=== PATIENT | female | born 1995 | race Caucasian/White ===

== ENCOUNTER 2016-10-16 01:11 | Emergency (ER) | payer OTHER ==
[~2016-10-16] VITALS: Ht 154.9 cm; Wt 59.0 kg
[2016-10-16] MEDS ORDERED: ACETAMINOPHEN ES 500 MG TABLET PO ONE (01:45)
[2016-10-16] MEDS ORDERED: IBUPROFEN 200 MG TABLET PO ONE (01:45)
[2016-10-16] MEDS ORDERED: IBUPROFEN 200 MG TABLET ONE (02:29)
[2016-10-16] MEDS ORDERED: ACETAMINOPHEN ES 500 MG TABLET ONE (02:29)
[2016-10-16] MEDS ORDERED: HYDROCODONE/APAP 5-325MG TABLET PO ONE (02:45)
--- NOTE | 2016-10-16 02:50 | NUR ---
Pt c/o severe sorethroat getting progressively worse over the last 2 days. Sts painful to swallow. Pt seen by MD. Rapid strep negative. Pt medicated for discomfort. Pt stable for discharge per MD. Pt given ACI. Pt verbalized understanding of dc instructions. Pt ambulated out of er with steady gait.
[2016-10-16] MEDS ORDERED: HYDROCODONE/APAP 5-325MG TABLET ONE (02:56)
[2016-10-16 03:37] VITALS: BP 118/73
== END 2016-10-16 02:50 | disposition home or self-care (01) ==
LOC: ER 01:16
DX: J02.9 Acute pharyngitis, unspecified (principal)
CPT/HCPCS: 36415; 86403; 87070; 99284; A4663

== ENCOUNTER → 2016-11-22 | Emergency (ER) | payer OTHER ==
[~2016-11-22] VITALS: Ht 154.9 cm; Wt 61.2 kg
== END | disposition home or self-care (01) ==
LOC: ER 14:02
DX: H92.03 Otalgia, bilateral (principal)
CPT/HCPCS: A4663

== ENCOUNTER 2017-03-06 13:38 | Emergency (ER) | payer OTHER ==
[~2017-03-06] VITALS: Ht 154.9 cm; Wt 56.7 kg
[2017-03-06 14:01] LABS: *BILIRUBIN,URIN NEGATIVE (NEGATIVE); *BLOOD, URINE NEGATIVE (NEGATIVE); *CLARITY,URINE CLEAR (CLEAR); *COLOR,URINE YELLOW (YELLOW); *KETONES,URINE NEGATIVE (NEGATIVE); *PROTEIN,URINE NEGATIVE (NEGATIVE); *UROBILINOGEN,URINE 0.2 E.U./dl (NORMAL); LEUKOCYTE ESTERASE ,URINE 2+ (NEGATIVE); NITRITE, URINE NEGATIVE (NEGATIVE); UGLUCOSE NEGATIVE (NEGATIVE)
[2017-03-06 14:02] LABS: *URINE HCG, QUAL NEGATIVE (NEGATIVE)
[2017-03-06 14:06] LABS: BACTERIA,URINE FEW /HPF (NONE SEEN); RBC,URINE 0-3 /HPF (0-3); SQUAMOUS EPITHELIAL CELL,UR MODERATE /HPF (NONE SEEN)
--- NOTE | 2017-03-06 14:14 | NUR ---
PT IS IN ROOM #2B. DR GARCIA EVALUATED THE PT.
[2017-03-06] MEDS ORDERED: NITROFURANTOIN/NITROFURAN MAC 100 MG CAPSULE PO ONE (15:30)
[2017-03-06] MEDS ORDERED: PHENAZOPYRIDINE HCL 100 MG TABLET PO ONE (15:30)
--- NOTE | 2017-03-06 15:43 | NUR ---
PT WAS D/C TO HOME. D/C INSTRUCTIONS GIVEN TO THE PT.
[2017-03-06 15:44] VITALS: BP 126/73
[2017-03-06] MEDS ORDERED: NITROFURANTOIN/NITROFURAN MAC 100 MG CAPSULE ONE (15:47)
[2017-03-06] MEDS ORDERED: PHENAZOPYRIDINE HCL 100 MG TABLET ONE (15:48)
== END 2017-03-06 15:44 | disposition home or self-care (01) ==
LOC: ER 13:40
DX: N39.0 Urinary tract infection, site not specified (principal)
CPT/HCPCS: 81001; 84703; 99284; A4663

== ENCOUNTER 2017-07-10 19:25 | Emergency (ER) | payer OTHER ==
[~2017-07-10] VITALS: Ht 154.9 cm; Wt 61.2 kg
--- NOTE | 2017-07-10 20:07 | NUR ---
Pt to room, resting in position of comfort for self. Awaiting further eval.
--- NOTE | 2017-07-10 20:12 | NUR ---
Pt stable for discharge per MD. Pt given ACi. Pt verbalized understanding of dc instructions. Pt ambulated out of ER with steady gait.
[2017-07-10 20:29] VITALS: BP 134/85
== END 2017-07-10 20:30 | disposition home or self-care (01) ==
LOC: ER 19:26
DX: Z00.00 Encounter for general adult medical examination without abnormal findings (principal)
CPT/HCPCS: 99281; A4663

== ENCOUNTER 2017-10-13 21:12 | Emergency (ER) | payer OTHER ==
[~2017-10-13] VITALS: Ht 154.9 cm; Wt 61.2 kg
--- NOTE | 2017-10-13 22:11 | NUR ---
DR DARRIN HERRERA MD AT BEDSIDE FOR MSE.
--- NOTE | 2017-10-13 22:27 | NUR ---
Patient discharged to home in stable conditon. Written and verbal after care instructions given. Patient verbalizes understanding of instructions. PT ambulated from ER w. steady gait. VSS. No acute distress noted. Pt took all personal belongigs.
[2017-10-13 22:29] VITALS: BP 118/72
== END 2017-10-13 22:29 | disposition home or self-care (01) ==
LOC: ER 21:22
DX: M26.609 Unspecified temporomandibular joint disorder, unspecified side (principal)
CPT/HCPCS: A4663

== ENCOUNTER 2018-01-15 11:52 | Emergency (ER) | payer OTHER ==
[~2018-01-15] VITALS: Ht 154.9 cm; Wt 63.5 kg
--- NOTE | 2018-01-15 12:31 | NUR ---
DR DOMINGO AND I WERE IN THE ROOM FOR EXAMINATON.
--- NOTE | 2018-01-15 12:38 | NUR ---
DC AND FOLLOW UP INSTRUCTIONS GIVEN AND EXPLAINED TO PATIENT WHO STATES SHE UNDERSRANDS ALL INSTRUCTIONS INCLUDING F/U WITH GASOLINE PUMP INSTALLER...
== END 2018-01-15 12:43 | disposition home or self-care (01) ==
LOC: ER 11:56
DX: N93.9 Abnormal uterine and vaginal bleeding, unspecified (principal)
CPT/HCPCS: 99281; A4663

== ENCOUNTER 2018-02-17 12:54 | Emergency (ER) | payer OTHER ==
[~2018-02-17] VITALS: Ht 162.6 cm; Wt 59.0 kg
== END 2018-02-17 13:26 | disposition home or self-care (01) ==
LOC: ER 12:54
DX: Z00.00 Encounter for general adult medical examination without abnormal findings (principal); K14.8 Other diseases of tongue
CPT/HCPCS: 99281; A4663

== ENCOUNTER 2018-03-18 03:26 | Emergency (ER) | payer OTHER ==
[~2018-03-18] VITALS: Ht 157.5 cm; Wt 57.6 kg
--- NOTE | 2018-03-18 03:55 | NUR ---
DR. SUTHERLAND AT BEDSIDE FOR MSE.
[2018-03-18] MEDS ORDERED: ACETAMINOPHEN ES 500 MG TABLET ONE (04:09)
[2018-03-18] MEDS ORDERED: ONDANSETRON ODT 4 MG TAB.RAPDIS ONE (04:09)
[2018-03-18] MEDS: ONDANSETRON ODT 4 MG TAB.RAPDIS SL ONE (04:10)
[2018-03-18] MEDS: ACETAMINOPHEN ES 500 MG TABLET PO ONE (04:10)
--- NOTE | 2018-03-18 04:19 | NUR ---
Patient discharged to home in stable conditon with family taking patient home. Written and verbal after care instructions given. Patient verbalizes understanding of instructions. Walked out of ER with no distress noted
[2018-03-18 04:20] VITALS: BP 110/85
== END 2018-03-18 04:20 | disposition home or self-care (01) ==
LOC: ER 03:28
DX: B34.9 Viral infection, unspecified (principal)
CPT/HCPCS: A4663; A9150; Q0162

== ENCOUNTER 2018-08-02 10:45 | Emergency (ER) | payer OTHER ==
[~2018-08-02] VITALS: Ht 154.9 cm; Wt 56.7 kg
[2018-08-02 11:08] LABS: *BILIRUBIN,URIN NEGATIVE (NEGATIVE); *BLOOD, URINE NEGATIVE (NEGATIVE); *CLARITY,URINE CLEAR (CLEAR); *COLOR,URINE YELLOW (YELLOW); *KETONES,URINE NEGATIVE (NEGATIVE); *UROBILINOGEN,URINE 0.2 E.U./dl (NORMAL); LEUKOCYTE ESTERASE ,URINE NEGATIVE (NEGATIVE); NITRITE, URINE NEGATIVE (NEGATIVE); PH,URINE 7.5 (5.0-8.0); UGLUCOSE NEGATIVE (NEGATIVE)
[2018-08-02 11:09] LABS: *URINE HCG, QUAL NEGATIVE (NEGATIVE)
[2018-08-02 11:12] LABS: BACTERIA,URINE FEW /HPF (NONE SEEN); RBC,URINE NONE SEEN /HPF (0-3); SQUAMOUS EPITHELIAL CELL,UR FEW /HPF (NONE SEEN); URINE AMORPHOUS PHOSPHATES FEW /HPF; WBC,URINE NONE SEEN /HPF (0-3)
[2018-08-02 11:59] LABS: BASOPHILS % (AUTO) 0.6 % (0.0-2.0); EOSINOPHILS # (AUTO) 0.2 K/uL (0.0-0.7); EOSINOPHILS % (AUTO) 3.9 % (0.0-7.0); HEMATOCRIT 36.5 % (31.2-41.9); HEMOGLOBIN 12.6 g/dL (10.9-14.3); LYMPHOCYTES # (AUTO) 1.8 K/uL (20.0-40.0); LYMPHOCYTES % (AUTO) 37.7 % (20.5-51.5); MEAN CORPUSCULAR HEMOGLOBIN 30.9 uug (24.7-32.8); MEAN CORPUSCULAR HGB CONC 35 g/dL (32.3-35.6); MEAN CORPUSCULAR VOLUME 89.7 fL (75.5-95.3); MONOCYTES # (AUTO) 0.3 K/uL (2.0-10.0); MONOCYTES % (AUTO) 6.6 % (0.0-11.0); NEUTROPHILS # (AUTO) 2.4 K/uL (1.8-8.9); NEUTROPHILS % (AUTO) 51.2 % (38.5-71.5); PLATELET COUNT (AUTO) 229 K/uL (179-408); RED BLOOD CELL COUNT(AUTO) 4.07 MIL/uL (3.63-4.92); WHITE BLOOD COUNT (AUTO) 4.7 K/uL (3.8-11.8)
[2018-08-02 12:02] LABS: CARBON DIOXIDE 28 mmol/L (21-32); CHLORIDE 103 mmol/L (98-107); CREATININE 0.5 mg/dL (0.6-1.3); GLUCOSE 87 mg/dL (74-106); UREA NITROGEN, BLOOD 10 mg/dL (7-18)
--- NOTE | 2018-08-02 12:35 | NUR ---
Patient is resting comfortably on gurney while intermittently using her personal electronic device , NAD, still for U/S scan@this time
--- NOTE | 2018-08-02 14:16 | NUR ---
Patient discharged to home in stable conditon. Written and verbal after care instructions given to patient. Patient verbalizes understanding of instructions.
== END 2018-08-02 14:23 | disposition home or self-care (01) ==
LOC: ER 10:45
DX: R10.32 Left lower quadrant pain (principal); R10.2 Pelvic and perineal pain
CPT/HCPCS: 36415; 76856; 84703; 85025; A4663

== ENCOUNTER 2019-06-26 18:58 | Emergency (ER) | payer OTHER ==
[~2019-06-26] VITALS: Ht 157.5 cm; Wt 59.0 kg
--- NOTE | 2019-06-26 20:19 | NUR ---
Dr. Hernandez at bedside for MSE.
[2019-06-26] MEDS ORDERED: PANTOPRAZOLE SODIUM 40 MG TABLET.DR PO ONE ×2 (20:25→20:30)
[2019-06-26] MEDS ORDERED: ONDANSETRON ODT 4 MG TAB.RAPDIS ONE (20:26)
[2019-06-26] MEDS ORDERED: ONDANSETRON ODT 4 MG TAB.RAPDIS SL ONE (20:30)
--- NOTE | 2019-06-26 20:37 | NUR ---
Patient discharged to home in stable conditon. Written and verbal after care instructions given. Patient verbalizes understanding of instructions. Pt ambulated out of ER with steady gait, no acute signs of distress, VSS, all belongings taken.
[2019-06-26 20:39] VITALS: BP 98/66
== END 2019-06-26 20:39 | disposition home or self-care (01) ==
LOC: ER 19:02
DX: A08.4 Viral intestinal infection, unspecified (principal)
CPT/HCPCS: A4663; Q0162

== ENCOUNTER 2020-01-17 21:12 | Emergency (ER) | payer OTHER ==
[~2020-01-17] VITALS: Ht 157.5 cm; Wt 58.5 kg
--- NOTE | 2020-01-17 21:30 | NUR ---
urine specimen collected and sent to lab. patient in no acute distress. will monitor.
[2020-01-17] MEDS ORDERED: PHENAZOPYRIDINE HCL 100 MG TABLET ONE (21:38)
[2020-01-17 21:43] LABS: *BILIRUBIN,URIN NEGATIVE (NEGATIVE); *BLOOD, URINE NEGATIVE (NEGATIVE); *CLARITY,URINE CLEAR (CLEAR); *COLOR,URINE YELLOW (YELLOW); *KETONES,URINE 1+ (NEGATIVE); *UROBILINOGEN,URINE 0.2 E.U./dl (NORMAL); LEUKOCYTE ESTERASE ,URINE NEGATIVE (NEGATIVE); NITRITE, URINE NEGATIVE (NEGATIVE); UGLUCOSE NEGATIVE (NEGATIVE)
[2020-01-17 21:45] LABS: *URINE HCG, QUAL NEGATIVE (NEGATIVE)
[2020-01-17] MEDS ORDERED: PHENAZOPYRIDINE HCL 100 MG TABLET PO ONE (21:45)
--- NOTE | 2020-01-17 21:56 | NUR ---
Dr. Hernandez at bedside for MSE.
--- NOTE | 2020-01-17 22:05 | NUR ---
Patient discharged to home in stable condition. Written and verbal after care instructions given. Patient verbalizes understanding of instructions. Stressed follow up or return to ER for worsening s/s.
[2020-01-17 22:06] VITALS: BP 108/60
== END 2020-01-17 22:06 | disposition home or self-care (01) ==
LOC: ER 21:14
DX: R10.2 Pelvic and perineal pain (principal)
CPT/HCPCS: 84703; A4663

== ENCOUNTER 2020-02-01 20:49 | Emergency (ER) | payer OTHER ==
[~2020-02-01] VITALS: Ht 157.5 cm; Wt 56.7 kg
--- NOTE | 2020-02-01 21:18 | NUR ---
at bedside for assessment of patient
[2020-02-01] MEDS ORDERED: ONDANSETRON 4 MG/2 ML VIAL IV ONE (21:30)
[2020-02-01] MEDS ORDERED: IV NORMAL SALINE 1000 ML BAG IV ONE (21:30)
[2020-02-01] MEDS ORDERED: MAG HYDROX/AL HYDROX/SIMETH 30 ML LIQUID UDC PO ONE (21:30)
[2020-02-01] MEDS ORDERED: LIDOCAINE VISCUS 2% 15 ML UDC MM ONE (21:30)
[2020-02-01] MEDS ORDERED: FAMOTIDINE. 20 MG/2 ML VIAL IV ONE ×2 (21:30→21:32)
[2020-02-01] MEDS ORDERED: LIDOCAINE VISCUS 2% 15 ML UDC ONE (21:32)
[2020-02-01] MEDS ORDERED: MAG HYDROX/AL HYDROX/SIMETH 30 ML LIQUID UDC ONE (21:32)
[2020-02-01] MEDS ORDERED: ONDANSETRON 4 MG/2 ML VIAL ONE (21:32)
[2020-02-01 22:12] LABS: BILIRUBIN,DIRECT 0.2 mg/dL (0.0-0.2); BILIRUBIN,TOTAL 0.5 mg/dL (0.2-1.0); CREATININE 0.6 mg/dL (0.6-1.3); POTASSIUM 3.7 mmol/L (3.5-5.1); TOTAL PROTEIN, SERUM 7.7 g/dL (6.4-8.2)
[2020-02-01 22:13] VITALS: BP 120/72
[2020-02-01 22:23] LABS: BASOPHILS % (AUTO) 0.3 % (0.0-2.0); EOSINOPHILS # (AUTO) 0.1 K/uL (0.0-0.7); EOSINOPHILS % (AUTO) 1.5 % (0.0-7.0); HEMATOCRIT 39.6 % (31.2-41.9); HEMOGLOBIN 13.9 g/dL (10.9-14.3); LYMPHOCYTES # (AUTO) 2.8 K/uL (20.0-40.0); LYMPHOCYTES % (AUTO) 32.6 % (20.5-51.5); MEAN CORPUSCULAR HEMOGLOBIN 31.4 uug (24.7-32.8); MEAN CORPUSCULAR HGB CONC 35 g/dL (32.3-35.6); MEAN CORPUSCULAR VOLUME 89.3 fL (75.5-95.3); MONOCYTES # (AUTO) 0.5 K/uL (2.0-10.0); NEUTROPHILS # (AUTO) 5.1 K/uL (1.8-8.9); NEUTROPHILS % (AUTO) 59.6 % (38.5-71.5); PLATELET COUNT (AUTO) 286 K/uL (179-408); RED BLOOD CELL COUNT(AUTO) 4.44 MIL/uL (3.63-4.92); WHITE BLOOD COUNT (AUTO) 8.5 K/uL (3.8-11.8)
--- NOTE | 2020-02-01 22:32 | NUR ---
urine sample sent to lab at this time
[2020-02-01 22:40] LABS: *BILIRUBIN,URIN NEGATIVE (NEGATIVE); *BLOOD, URINE NEGATIVE (NEGATIVE); *CLARITY,URINE CLEAR (CLEAR); *COLOR,URINE YELLOW (YELLOW); *KETONES,URINE NEGATIVE (NEGATIVE); *UROBILINOGEN,URINE 0.2 E.U./dl (NORMAL); LEUKOCYTE ESTERASE ,URINE NEGATIVE (NEGATIVE); NITRITE, URINE NEGATIVE (NEGATIVE); PH,URINE 6.5 (5.0-8.0); UGLUCOSE NEGATIVE (NEGATIVE)
[2020-02-01 22:41] LABS: *URINE HCG, QUAL NEGATIVE (NEGATIVE)
--- NOTE | 2020-02-01 22:54 | NUR ---
Patient discharged to home in stable condition. Patient ambulated in steady manner, took all belongings, no signs of distress, stated relief after medication administration. Written and verbal after care instructions given. Patient verbalizes understanding of instructions. Stressed follow up or return to ER for worsening s/s.
== END 2020-02-01 22:56 | disposition home or self-care (01) ==
LOC: ER 20:52
DX: R10.10 Upper abdominal pain, unspecified (principal); R11.0 Nausea; Z20.828 Contact with and (suspected) exposure to other viral communicable diseases
CPT/HCPCS: 36415; 76705; 80048; 80076; 81001; 83690; 84703; 85025; 96374; 96375; 99284; J2405; J3490; U0003; A4663; J7030

== ENCOUNTER 2020-10-03 13:18 | Emergency (ER) | payer MEDICAID, OTHER ==
[~2020-10-03] VITALS: Ht 157.5 cm; Wt 59.0 kg
[2020-10-03] MEDS ORDERED: IBUP-1955 PO (13:38)
== END 2020-10-03 13:44 | disposition home or self-care (01) ==
LOC: ER 13:18
DX: M26.609 Unspecified temporomandibular joint disorder, unspecified side (principal); H92.03 Otalgia, bilateral; Z83.3 Family history of diabetes mellitus
CPT/HCPCS: A4663

== ENCOUNTER 2020-10-17 15:27 | Emergency (ER) | payer OTHER ==
[~2020-10-17] VITALS: Ht 157.5 cm; Wt 59.0 kg
[~2020-10-17 15:27] MED LIST: IBUP-1955 PO
[2020-10-17 15:44] LABS: *BILIRUBIN,URIN NEGATIVE (NEGATIVE); *CLARITY,URINE CLEAR (CLEAR); *COLOR,URINE YELLOW (YELLOW); *KETONES,URINE 2+ (NEGATIVE); *UROBILINOGEN,URINE 0.2 E.U./dl (NORMAL); LEUKOCYTE ESTERASE ,URINE NEGATIVE (NEGATIVE); NITRITE, URINE NEGATIVE (NEGATIVE); PH,URINE 6.5 (5.0-8.0); UGLUCOSE NEGATIVE (NEGATIVE)
[2020-10-17 15:45] LABS: *BLOOD, URINE TRACE (NEGATIVE); *URINE HCG, QUAL NEGATIVE (NEGATIVE)
[2020-10-17 15:50] LABS: BACTERIA,URINE NONE SEEN /HPF (NONE SEEN); SQUAMOUS EPITHELIAL CELL,UR FEW /HPF (NONE SEEN); WBC,URINE 0-3 /HPF (0-3)
[2020-10-17 15:59] LABS: BASOPHILS % (AUTO) 0.4 % (0.0-2.0); EOSINOPHILS # (AUTO) 0.1 K/uL (0.0-0.7); EOSINOPHILS % (AUTO) 0.9 % (0.0-7.0); HEMATOCRIT 37.7 % (31.2-41.9); LYMPHOCYTES # (AUTO) 1.9 K/uL (20.0-40.0); LYMPHOCYTES % (AUTO) 28.2 % (20.5-51.5); MEAN CORPUSCULAR HEMOGLOBIN 31.2 uug (24.7-32.8); MEAN CORPUSCULAR HGB CONC 34 g/dL (32.3-35.6); MEAN CORPUSCULAR VOLUME 90.7 fL (75.5-95.3); MONOCYTES # (AUTO) 0.4 K/uL (2.0-10.0); MONOCYTES % (AUTO) 6.3 % (0.0-11.0); NEUTROPHILS # (AUTO) 4.2 K/uL (1.8-8.9); NEUTROPHILS % (AUTO) 64.2 % (38.5-71.5); PLATELET COUNT (AUTO) 264 K/uL (179-408); RED BLOOD CELL COUNT(AUTO) 4.16 MIL/uL (3.63-4.92); WHITE BLOOD COUNT (AUTO) 6.6 K/uL (3.8-11.8)
[2020-10-17 16:05] LABS: CREATININE 0.7 mg/dL (0.6-1.3); POTASSIUM 3.6 mmol/L (3.5-5.1)
[2020-10-17 16:11] LABS: BILIRUBIN,DIRECT 0.2 mg/dL (0.0-0.2); BILIRUBIN,TOTAL 0.6 mg/dL (0.2-1.0); TOTAL PROTEIN, SERUM 7.3 g/dL (6.4-8.2)
[2020-10-17] MEDS ORDERED: OMEP40CA13 PO (16:34)
== END 2020-10-17 17:22 | disposition home or self-care (01) ==
LOC: ER 15:29
DX: R10.13 Epigastric pain (principal); Z83.3 Family history of diabetes mellitus
CPT/HCPCS: 36415; 83690; 84703; 85025; A4663

== ENCOUNTER 2020-12-30 13:30 | Emergency (ER) | payer OTHER ==
[~2020-12-30] VITALS: Ht 157.5 cm; Wt 56.7 kg
[~2020-12-30 13:30] MED LIST changes: +OMEP40CA21 PO
[2020-12-30] MEDS ORDERED: IBUPROFEN 600 MG TABLET PO ONE (14:00)
[2020-12-30] MEDS ORDERED: IBUPROFEN 600 MG TABLET ONE (14:10)
[2020-12-30 14:20] LABS: *BILIRUBIN,URIN NEGATIVE (NEGATIVE); *BLOOD, URINE 1+ (NEGATIVE); *CLARITY,URINE CLEAR (CLEAR); *COLOR,URINE YELLOW (YELLOW); *KETONES,URINE NEGATIVE (NEGATIVE); *UROBILINOGEN,URINE 0.2 E.U./dl (NORMAL); LEUKOCYTE ESTERASE ,URINE NEGATIVE (NEGATIVE); NITRITE, URINE NEGATIVE (NEGATIVE); UGLUCOSE NEGATIVE (NEGATIVE)
[2020-12-30 14:21] LABS: *URINE HCG, QUAL NEGATIVE (NEGATIVE)
[2020-12-30 14:26] LABS: WBC,URINE 0-3 /HPF (0-3)
[2020-12-30 14:27] LABS: BACTERIA,URINE NONE SEEN /HPF (NONE SEEN); MUCUS,URINE FEW /LPF (0-FEW); SQUAMOUS EPITHELIAL CELL,UR FEW /HPF (NONE SEEN); URINE AMORPHOUS PHOSPHATES FEW /HPF
--- NOTE | 2020-12-30 15:43 | NUR ---
assissted md with vaginal exam. pt tolerated well, wet mount and culturette sent to lab
== END 2020-12-30 18:22 | disposition home or self-care (01) ==
LOC: ER 13:30
DX: R10.2 Pelvic and perineal pain (principal); Z82.49 Family history of ischemic heart disease and other diseases of the circulatory system; N93.9 Abnormal uterine and vaginal bleeding, unspecified
CPT/HCPCS: 84703; 87210; A4663

== ENCOUNTER 2021-02-18 09:54 | Emergency (ER) | payer MEDICAID, OTHER ==
[~2021-02-18] VITALS: Ht 157.5 cm; Wt 59.0 kg
[2021-02-18] MEDS ORDERED: SUMA50TA PO (10:01)
--- NOTE | 2021-02-18 10:06 | NUR ---
at bedside for assessment
[2021-02-18] MEDS ORDERED: KETOROLAC TROMETHAMINE 60 MG INJ IM ONE ×2 (10:15→10:22)
[2021-02-18 10:30] LABS: *URINE HCG, QUAL NEG (NEGATIVE)
[2021-02-18] MEDS ORDERED: NAPR-1009 PO (10:49)
--- NOTE | 2021-02-18 10:58 | NUR ---
Patient states pain is starting to diminish DC, Rx and follow up instructions given and explained to patient who states she understands all instructions
== END 2021-02-18 11:00 | disposition home or self-care (01) ==
LOC: ER 09:54
DX: R51.9 Headache, unspecified (principal); Z83.3 Family history of diabetes mellitus
CPT/HCPCS: 70450; 84703; 96372; 99284; J1885; A4663

== ENCOUNTER 2021-06-28 17:58 | Emergency (ER) | payer MEDICAID ==
[~2021-06-28] VITALS: Ht 157.5 cm; Wt 59.0 kg
[~2021-06-28 17:58] MED LIST changes: +NAPR-1009 PO; +SUMA50TA PO
[2021-06-28 18:29] LABS: *BILIRUBIN,URIN NEGATIVE (NEGATIVE); *BLOOD, URINE NEGATIVE (NEGATIVE); *CLARITY,URINE CLEAR (CLEAR); *COLOR,URINE YELLOW (YELLOW); *KETONES,URINE NEGATIVE (NEGATIVE); *UROBILINOGEN,URINE 0.2 E.U./dl (NORMAL); LEUKOCYTE ESTERASE ,URINE NEGATIVE (NEGATIVE); NITRITE, URINE NEGATIVE (NEGATIVE); UGLUCOSE NEGATIVE (NEGATIVE)
[2021-06-28 18:32] LABS: *URINE HCG, QUAL NEG (NEGATIVE)
--- NOTE | 2021-06-28 18:50 | NUR ---
PT IS IN ROOM #2B. DR WITT EVALUATED THE PT.
[2021-06-28 19:42] LABS: HEMATOCRIT 40.3 % (31.2-41.9); MEAN CORPUSCULAR HEMOGLOBIN 30.9 uug (24.7-32.8); MEAN CORPUSCULAR VOLUME 90.4 fL (75.5-95.3); PLATELET COUNT (AUTO) 310 K/uL (179-408)
[2021-06-28] MEDS: FAMOTIDINE 20 MG TABLET PO ONE (19:43)
[2021-06-28 19:50] LABS: CREATININE 0.6 mg/dL (0.6-1.3)
[2021-06-28 19:55] LABS: BILIRUBIN,DIRECT 0.1 mg/dL (0.0-0.2); BILIRUBIN,TOTAL 0.3 mg/dL (0.2-1.0); TOTAL PROTEIN, SERUM 7.6 g/dL (6.4-8.2)
[2021-06-28] MEDS ORDERED: FAMOTIDINE 20 MG TABLET ONE (19:55)
[2021-06-28] MEDS: ONDANSETRON ODT 4 MG TAB.RAPDIS SL ONE (19:55)
[2021-06-28] MEDS ORDERED: ONDANSETRON ODT 4 MG TAB.RAPDIS ONE (19:55)
[2021-06-28] MEDS ORDERED: FAMO-132 PO (22:04)
[2021-06-28] MEDS ORDERED: ONDA4TAB11 PO (22:04)
--- NOTE | 2021-06-28 22:10 | NUR ---
Pt given dc instruc. and pt confirmed understranding of aftercare. VSS, PE WNL, otherwise very healthy and active individual, pt is a runner. Denies any pain, dizziness, sob, n/v or dioscomfort. No s/sx of distress present .
[2021-06-29 03:06] VITALS: BP 114/85
== END 2021-06-28 22:10 | disposition home or self-care (01) ==
LOC: ER 17:59
DX: R10.31 Right lower quadrant pain (principal); R11.0 Nausea; Z79.899 Other long term (current) drug therapy; Z79.1 Long term (current) use of non-steroidal anti-inflammatories (NSAID)
CPT/HCPCS: 36415; 83690; 84703; 85025; A4663; Q0162

== ENCOUNTER 2021-09-12 15:22 | Emergency (ER) | payer MEDICAID ==
[~2021-09-12] VITALS: Ht 157.5 cm; Wt 59.0 kg
[~2021-09-12 15:22] MED LIST changes: +FAMO-132 PO; +ONDA4TAB11 PO
[2021-09-12] MEDS ORDERED: DIPH25TA62 PO (15:43)
[2021-09-12] MEDS ORDERED: MUPI22OI2 TP (15:43)
== END 2021-09-12 15:45 | disposition home or self-care (01) ==
LOC: ER 15:24
DX: L73.9 Follicular disorder, unspecified (principal)
CPT/HCPCS: A4663

== ENCOUNTER 2021-10-21 15:42 | Emergency (ER) | payer MEDICAID ==
[~2021-10-21] VITALS: Ht 154.9 cm; Wt 61.2 kg
[~2021-10-21 15:42] MED LIST changes: +DIPH25TA62 PO; +MUPI22OI2 TP
--- NOTE | 2021-10-21 16:00 | NUR ---
MD at bedside, medical screening exam in progress.
--- NOTE | 2021-10-21 16:06 | NUR ---
UA sent to lab.
[2021-10-21 16:24] LABS: HEMATOCRIT 40.4 % (31.2-41.9); MEAN CORPUSCULAR HEMOGLOBIN 30.7 uug (24.7-32.8); MEAN CORPUSCULAR VOLUME 88.9 fL (75.5-95.3); PLATELET COUNT (AUTO) 297 K/uL (179-408)
[2021-10-21 16:27] LABS: CARBON DIOXIDE 27 mmol/L (21-32); CHLORIDE 102 mmol/L (98-107); CREATININE 0.5 mg/dL (0.6-1.3); GLUCOSE 100 mg/dL (74-106); POTASSIUM 3.9 mmol/L (3.5-5.1); UREA NITROGEN, BLOOD 12 mg/dL (7-18)
[2021-10-21 16:28] LABS: *BILIRUBIN,URIN NEGATIVE (NEGATIVE); *BLOOD, URINE NEGATIVE (NEGATIVE); *CLARITY,URINE CLEAR (CLEAR); *COLOR,URINE YELLOW (YELLOW); *KETONES,URINE NEGATIVE (NEGATIVE); *UROBILINOGEN,URINE 0.2 E.U./dl (NORMAL); LEUKOCYTE ESTERASE ,URINE NEGATIVE (NEGATIVE); NITRITE, URINE NEGATIVE (NEGATIVE); PH,URINE 7.5 (5.0-8.0); UGLUCOSE NEGATIVE (NEGATIVE)
[2021-10-21 16:33] LABS: ALANINE AMINOTRANSFERASE 84 U/L (14-59); ALKALINE PHOSPHATASE 58 U/L (50-136); ASPARTATE AMINOTRANSFERASE 23 U/L (15-37); BILIRUBIN,DIRECT 0.1 mg/dL (0.0-0.2); BILIRUBIN,TOTAL 0.3 mg/dL (0.2-1.0); TOTAL PROTEIN, SERUM 7.8 g/dL (6.4-8.2)
[2021-10-21 16:35] LABS: *URINE HCG, QUAL NEGATIVE (NEGATIVE)
[2021-10-21] MEDS ORDERED: METH4TAB3 PO (16:50)
[2021-10-21 16:58] VITALS: BP 120/65
== END 2021-10-21 16:59 | disposition home or self-care (01) ==
LOC: ER 15:43
DX: L50.9 Urticaria, unspecified (principal); Z83.3 Family history of diabetes mellitus
CPT/HCPCS: 36415; 84443; 84703; 85025; A4663

== ENCOUNTER 2021-12-23 09:17 | Emergency (ER) | payer MEDICAID ==
[~2021-12-23] VITALS: Ht 157.5 cm; Wt 63.5 kg
[~2021-12-23 09:17] MED LIST changes: +METH4TAB3 PO
--- NOTE | 2021-12-23 09:48 | NUR ---
DR REYES AT BEDSIDE FOR EVALUATION.
[2021-12-23 09:59] VITALS: BP 135/74
== END 2021-12-23 10:00 | disposition home or self-care (01) ==
LOC: ER 09:19
DX: J06.9 Acute upper respiratory infection, unspecified (principal); H65.91 Unspecified nonsuppurative otitis media, right ear; Z83.3 Family history of diabetes mellitus; Z86.16 Personal history of COVID-19
CPT/HCPCS: A4663

== ENCOUNTER 2022-04-10 11:08 | Emergency (ER) | payer MEDICAID ==
[~2022-04-10] VITALS: Ht 157.5 cm; Wt 61.2 kg
[2022-04-10] MEDS ORDERED: IV NORMAL SALINE 1000 ML BAG IV ONE ×2 (11:15→12:30)
[2022-04-10 11:31] LABS: HEMATOCRIT 37.5 % (31.2-41.9); MEAN CORPUSCULAR HEMOGLOBIN 31.3 uug (24.7-32.8); MEAN CORPUSCULAR VOLUME 91.4 fL (75.5-95.3); PLATELET COUNT (AUTO) 280 K/uL (179-408)
--- NOTE | 2022-04-10 11:35 | NUR ---
PT CAME IN FOR GREEN LOOSE STOOLS X 3DAYS; NAUSEA AND INCREASED CRAMPS SINCE THIS AM. PT IS CURRENTLY ON MENSTRUAL CYCLE.
[2022-04-10 11:40] LABS: CREATININE 0.6 mg/dL (0.6-1.3); POTASSIUM 4.3 mmol/L (3.5-5.1)
[2022-04-10 11:46] LABS: BILIRUBIN,DIRECT 0.1 mg/dL (0.0-0.2); BILIRUBIN,TOTAL 0.3 mg/dL (0.2-1.0); TOTAL PROTEIN, SERUM 7.4 g/dL (6.4-8.2)
[2022-04-10 11:55] LABS: *BILIRUBIN,URIN NEGATIVE (NEGATIVE); *BLOOD, URINE 2+ (NEGATIVE); *CLARITY,URINE CLEAR (CLEAR); *COLOR,URINE YELLOW (YELLOW); *KETONES,URINE NEGATIVE (NEGATIVE); *UROBILINOGEN,URINE 0.2 E.U./dl (NORMAL); LEUKOCYTE ESTERASE ,URINE NEGATIVE (NEGATIVE); NITRITE, URINE NEGATIVE (NEGATIVE); UGLUCOSE NEGATIVE (NEGATIVE)
[2022-04-10 11:57] LABS: *URINE HCG, QUAL NEGATIVE (NEGATIVE)
[2022-04-10 12:21] LABS: BACTERIA,URINE NONE SEEN /HPF (NONE SEEN); SQUAMOUS EPITHELIAL CELL,UR FEW /HPF (NONE SEEN); WBC,URINE NONE SEEN /HPF (0-3)
[2022-04-10] MEDS ORDERED: ACETAMINOPHEN 325 MG TABLET ONE (12:23)
[2022-04-10] MEDS ORDERED: ONDANSETRON 4 MG/2 ML VIAL IV ONE (12:30)
[2022-04-10] MEDS ORDERED: ACETAMINOPHEN 325 MG TABLET PO ONE (12:30)
[2022-04-10] MEDS ORDERED: ACET-2605 PO (13:21)
[2022-04-10] MEDS ORDERED: ONDA4TAB5 PO (13:21)
--- NOTE | 2022-04-10 13:38 | NUR ---
Note cb in EDM - 04/10/22 at 1338 by LATESHA IV removed. Catheter intact and site benign. Pressure and 4x4 gauze applied to site. No bleeding noted.
== END 2022-04-10 13:39 | disposition home or self-care (01) ==
LOC: ER 11:09
DX: R10.9 Unspecified abdominal pain (principal); N94.6 Dysmenorrhea, unspecified; R11.0 Nausea; R19.4 Change in bowel habit
CPT/HCPCS: 36415; 83690; 84703; 85025; A4663; J7040

== ENCOUNTER 2023-05-27 15:08 | Emergency (ER) | payer BC ==
[~2023-05-27] VITALS: Ht 157.5 cm; Wt 63.5 kg
[~2023-05-27 15:08] MED LIST changes: +ACET-2605 PO; +ACET1TAB23 PO; +ONDA4TAB5 PO
[2023-05-27] MEDS ORDERED: IBUPROFEN 400 MG TABLET PO ONE (17:00)
[2023-05-27] MEDS ORDERED: IBUPROFEN 400 MG TABLET ONE (17:07)
[2023-05-27 18:30] LABS: *URINE HCG, QUAL NEGATIVE (NEGATIVE)
[2023-05-27] MEDS ORDERED: CYCL5TAB PO (18:37)
[2023-05-27] MEDS ORDERED: NAPR-1009 PO (18:37)
[2023-05-27 20:07] VITALS: BP 126/74; O2SAT 99
== END 2023-05-27 20:08 | disposition home or self-care (01) ==
LOC: ER 15:08
DX: S06.0X0A Concussion without loss of consciousness, initial encounter (principal); S39.012A Strain of muscle, fascia and tendon of lower back, initial encounter; S00.33XA Contusion of nose, initial encounter; S60.222A Contusion of left hand, initial encounter; S80.02XA Contusion of left knee, initial encounter; S30.1XXA Contusion of abdominal wall, initial encounter; Z79.1 Long term (current) use of non-steroidal anti-inflammatories (NSAID); Z79.899 Other long term (current) drug therapy; V43.52XA Car driver injured in collision with other type car in traffic accident, initial encounter; Y93.89 Activity, other specified; Y92.410 Unspecified street and highway as the place of occurrence of the external cause; Y99.8 Other external cause status
CPT/HCPCS: 70450; 70486; 72125; 72131; 73130; 73560; 84703; A4606; A4663